=== PATIENT | male | born 1995 | race Caucasian/White ===

== ENCOUNTER 2017-11-09 05:46 | Emergency (ER) | payer SELFPAY ==
[2017-11-09 05:46] VITALS: BMI 20.3
[2017-11-09 06:05] VITALS: RESP 16; TEMP 98.2
[2017-11-09] MEDS ORDERED: Lidocaine 2% Inj (20ml) ONE (06:39)
[2017-11-09] MEDS ORDERED: Tdap Vaccine 0.5 ml Vial (10-64 yrs) IM ONE ×2 (06:55→07:13)
[2017-11-09] MEDS ORDERED: Lidocaine 2% Inj (20ml) SC ONE (07:13)
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
[2017-11-09 07:21] VITALS: BP 120/58; PULSE 70; O2SAT 96
--- NOTE | 2017-11-09 09:04 | RAD ---
PROCEDURE: Right Hand Radiographs. HISTORY: hand injury COMPARISON: None. FINDINGS: BONES: No acute fracture or destructive bony lesion identified. JOINTS: Normal. No osteoarthritic changes. SOFT TISSUES: Soft tissue edema overlies the metacarpophalangeal joints diffusely without retained radiodense foreign body or emphysema soft tissue changes related. Clinically correlate further. OTHER FINDINGS: None. IMPRESSION: No acute fracture or other destructive bony lesion appreciable. No dislocation. Soft edema overlies the dorsal mid hand soft tissues. Clinically correlate further.
--- NOTE | 2017-11-09 09:36 | ED PDOC ---
- ECG O2 Sat by Pulse Oximetry: 96 (RA) Pulse Ox Interpretation: Normal Medical Decision Making Medical Decision Making: Time: 07 Patient signed out to me pending XR studies, re-evaluation and final disposition. Time: 901 XR Right hand FINDINGS: BONES: No acute fracture or destructive bony lesion identified. JOINTS: Normal. No osteoarthritic changes. SOFT TISSUES: Soft tissue edema overlies the metacarpophalangeal joints diffusely without retained radiodense foreign body or emphysema soft tissue changes related. Clinically correlate further. OTHER FINDINGS: None. IMPRESSION: No acute fracture or other destructive bony lesion appreciable. No dislocation. Soft edema overlies the dorsal mid hand soft tissues. Clinically correlate further. Time: 930 Provider informed by patient's family that the patient is depressed. Crisis evaluation ordered. Time: 1044 Patient seen and evaluated by crisis team and per Dr. Simons, patient is stable for discharge home. Diagnosis: Unspecified schizophrenia Scribe Attestation: Documented by Marcela Castorena, acting as a scribe for Justino Pardo MD. Provider Scribe Attestation: All medical record entries made by the Scribe were at my direction and personally dictated by me. I have reviewed the chart and agree that the record accurately reflects my personal performance of the history, physical exam, medical decision making, and the department course for this patient. I have also personally directed, reviewed, and agree with the discharge instructions and disposition. Disposition Counseled Patient/Family Regarding: Studies Performed, Need For Followup - Clinical Impression Clinical Impression: Laceration, Schizophrenia - POA Present On Arrival: Falls Or Trauma - Disposition Referrals: Donna Sanchez MD [Staff Provider] - Disposition: Routine/Home Disposition Time: 11:00 Condition: GOOD Additional Instructions: Follow up with your PCP in 3 days. Take motrin for pain. Apply ice. Return for suture removal in 10-14 days. Prescriptions: Cephalexin [Keflex] 500 mg PO QID #28 capsule Instructions: Laceration Repair, Schizophrenia (DC), Stitches, Cephalexin
== END 2017-11-09 11:03 | disposition home or self-care (01) ==
LOC: H.ER 05:46
DX: S61.411A Laceration without foreign body of right hand, initial encounter (principal); W25.XXXA Contact with sharp glass, initial encounter; Y92.89 Other specified places as the place of occurrence of the external cause; F20.9 Schizophrenia, unspecified; F32.9 Major depressive disorder, single episode, unspecified; F41.9 Anxiety disorder, unspecified; F17.210 Nicotine dependence, cigarettes, uncomplicated

== ENCOUNTER 2018-01-03 18:45 | Emergency (ER) | payer SELFPAY ==
[2018-01-03 18:45] VITALS: BMI 20.3
[2018-01-03 19:09] VITALS: BP 102/60; PULSE 82; RESP 18; TEMP 98; O2SAT 98
== END 2018-01-03 19:38 | disposition left against medical advice (07) ==
LOC: H.ER 18:45
DX: Z02.89 Encounter for other administrative examinations (principal)

== ENCOUNTER → 2018-01-19 21:40 | Emergency (ER) | payer MEDICAID ==
[2018-01-19 21:40] VITALS: BMI 20.3
[2018-01-19 23:08] VITALS: BP 111/68; PULSE 75; RESP 18; TEMP 98; O2SAT 99
== END | disposition home or self-care (01) ==
LOC: H.ER 21:40
DX: Z02.89 Encounter for other administrative examinations (principal)

== ENCOUNTER 2018-02-01 19:55 | Emergency (ER) | payer MEDICAID ==
[2018-02-01 19:55] VITALS: BMI 20.3
[2018-02-01 20:16] VITALS: BP 105/67; PULSE 83; RESP 16; TEMP 97.9; O2SAT 98
--- NOTE | 2018-02-01 21:00 | ED PDOC ---
HPI: Psych/Substance Abuse Time Seen by Provider: 02/01/18 20:39 Chief Complaint (Nursing): Psychiatric Evaluation Chief Complaint (Provider): psychiatric evalution History Per: Patient, Other (male friend) History/Exam Limitations: no limitations Onset/Duration Of Symptoms: Days (months) Current Symptoms Are (Timing): Still Present Suicide/Self Injury Attempted (Context): None Associated Symptoms: Suicidal Thoughts (not in this moment but has had them in the past) Additional Complaint(s): 22 y/o male with a history of substance abuse presents to the ED for psychiatric evaluation. Patient reports that he recently go health insurance and he wanted to come into the ER. He states in the past months he has heard voices telling him to hurt himself. Patient claims 2 months ago he felt suicidal. He states he hasn't felt normal in the past couple years and had to call into work a lot this past week. Patient states he could only sleep one hour last night. He has no medical complaints. Denies having any recent suicidal or homicidal ideation. PMD: Dr. Carlos Goss Past Medical History Reviewed: Historical Data, Nursing Documentation, Vital Signs Vital Signs: Last Vital Signs Temp 97.9 F 02/01/18 20:13 Pulse 83 02/01/18 20:13 Resp 16 02/01/18 20:13 BP 105/67 02/01/18 20:13 Pulse Ox 98 02/01/18 20:13 - Medical History PMH: Anxiety, Depression Denies: Diabetes, Hepatitis, HIV, HTN, Seizures, Sexually Transmitted Disease - Surgical History Surgical History: No Surg Hx - Family History Family History: States: Unknown Family Hx - Immunization History Hx Tetanus Toxoid Vaccination: No Hx Influenza Vaccination: No Hx Pneumococcal Vaccination: No - Home Medications Home Medications: Ambulatory Orders Medication Instructions Recorded ALPRAZolam [Xanax] 1 mg PO DAILY 08/03/17 Zolpidem [Ambien] 5 mg PO HS PRN #10 tab 08/03/17 Cephalexin [Keflex] 500 mg PO QID #28 capsule 11/09/17 - Allergies Allergies/Adverse Reactions: Allergies Allergy/AdvReac Type Severity Reaction Status Date / Time No Known Allergies Allergy Verified 11/09/17 06:02 Review of Systems ROS Statement: Except As Marked, All Systems Reviewed And Found Negative Psych: Positive for: Suicidal ideation (has had in the past but not at this moment). Negative for: Other (denies homicidal ideation) Physical Exam - Reviewed Nursing Documentation Reviewed: Yes Vital Signs Reviewed: Yes - Physical Exam Appears: Positive for: Well, Non-toxic, No Acute Distress. Negative for: Uncomfortable Head Exam: Positive for: ATRAUMATIC, NORMAL INSPECTION Skin: Positive for: Normal Color Neck: Positive for: Normal, Painless ROM, Supple. Negative for: Decreased ROM Cardiovascular/Chest: Positive for: Regular Rate, Rhythm, Chest Non Tender. Negative for: Edema, Gallop, Murmur, Bradycardia, Tachycardia Respiratory: Positive for: Normal Breath Sounds. Negative for: Decreased Breath Sounds, Accessory Muscle Use, Crackles, Rales, Rhonchi, Stridor, Wheezing , Respiratory Distress Pulses-Carotid (L): 2+ Pulses-Carotid (R): 2+ Pulses-Radial (L): 2+ Pulses-Radial (R): 2+ - ECG O2 Sat by Pulse Oximetry: 98 (RA) Pulse Ox Interpretation: Normal Medical Decision Making Medical Decision Making: Time: 20:13 Impression: auditory hallucinations Pt is medically cleared for crisis evaluation Plan: * crisis evaluation Scribe Attestation: Documented by Christophe Velasquez acting as a scribe Sameer Farley PA-C. MD Scribkelsey Attestation: All medical record entries made by the Scribe were at my direction and personally dictated by me. I have reviewed the chart and agree that the record accurately reflects my personal performance of the history, physical exam, medical decision making, and the department course for this patient. I have also personally directed, reviewed, and agree with the discharge instructions and disposition. Disposition - Clinical Impression Clinical Impression: Schizophrenia - Patient ED Disposition Is Patient to be Admitted: No Discussed With : Sher Lane Doctor Will See Patient In The: Office Counseled Patient/Family Regarding: Diagnosis, Need For Followup - Disposition Disposition: Routine/Home Disposition Time: 21:27 Condition: STABLE Additional Instructions: Pt was evaluated by crisis and will be referred to Marilynn after discharge Pt acknowledged these instructions and referral Forms: [employer] (Slovenian)
== END 2018-02-01 21:40 | disposition home or self-care (01) ==
LOC: H.ER 19:55
DX: F20.9 Schizophrenia, unspecified (principal); F32.9 Major depressive disorder, single episode, unspecified; F41.9 Anxiety disorder, unspecified

== ENCOUNTER 2018-05-09 15:17 | Emergency (ER) | payer MEDICAID ==
[2018-05-09 15:17] VITALS: BMI 20.3
[2018-05-09 15:27] VITALS: RESP 18; O2SAT 100
--- NOTE | 2018-05-09 16:16 | ED PDOC ---
HPI: Abdomen Time Seen by Provider: 05/09/18 15:34 Chief Complaint (Nursing): Abdominal Pain Chief Complaint (Provider): Vomiting History Per: Patient Additional Complaint(s): 22 yo male, PMH of Schizophrenia, depression, anxiety and substance abuse, presents to ED for evaluation of abdominal pain, nausea, vomiting, shaking and diaphoresis that started at noon today. Pt has a history of heroin abuse, last used 3 days ago. Past Medical History Reviewed: Nursing Documentation, Vital Signs Vital Signs: Last Vital Signs Temp 98.0 F 05/09/18 18:35 Pulse 80 05/09/18 18:35 Resp 18 05/09/18 18:35 BP 110/69 05/09/18 18:35 Pulse Ox 100 05/09/18 20:15 - Medical History PMH: Anxiety, Depression, Schizophrenia Denies: Diabetes, Hepatitis, HIV, HTN, Seizures, Sexually Transmitted Disease - Family History Family History: States: Unknown Family Hx - Social History Current smoker - smoking cessation education provided: Yes Alcohol: Social Drugs: Cannabis, Other (heroin last used 3 days ago) - Immunization History Hx Tetanus Toxoid Vaccination: No Hx Influenza Vaccination: No Hx Pneumococcal Vaccination: No - Home Medications Home Medications: Ambulatory Orders Medication Instructions Recorded ALPRAZolam [Xanax] 1 mg PO DAILY 08/03/17 Zolpidem [Ambien] 5 mg PO HS PRN #10 tab 08/03/17 Cephalexin [Keflex] 500 mg PO QID #28 capsule 11/09/17 LORazepam [Ativan] 1 mg PO TID #3 tab 05/09/18 - Allergies Allergies/Adverse Reactions: Allergies Allergy/AdvReac Type Severity Reaction Status Date / Time No Known Allergies Allergy Verified 05/09/18 15:25 Review of Systems ROS Statement: Except As Marked, All Systems Reviewed And Found Negative Gastrointestinal: Positive for: Nausea, Vomiting, Abdominal Pain Psych: Positive for: Withdrawal Physical Exam - Reviewed Nursing Documentation Reviewed: Yes Vital Signs Reviewed: Yes - Physical Exam Appears: Positive for: Non-toxic, No Acute Distress, Uncomfortable Head Exam: Positive for: ATRAUMATIC, NORMAL INSPECTION, NORMOCEPHALIC Skin: Positive for: Normal Color, Warm, DRY Eye Exam: Positive for: EOMI, Normal appearance, PERRL ENT: Positive for: Normal ENT Inspection Neck: Positive for: Normal, Painless ROM Cardiovascular/Chest: Positive for: Regular Rate, Rhythm Respiratory: Positive for: CNT, Normal Breath Sounds Gastrointestinal/Abdominal: Positive for: Normal Exam, Soft Back: Positive for: Normal Inspection Extremity: Positive for: Normal ROM Neurologic/Psych: Positive for: Alert, Oriented - Laboratory Results Result Diagrams: 05/09/18 16:20 05/09/18 16:20 - ECG O2 Sat by Pulse Oximetry: 100 Medical Decision Making Medical Decision Making: Pt placed on nurse monitoring IV access established and diagnostics ordered Pt medicated with Ativan, Zofran and Pepcid. IVF started as well Pt on re-eval reports feeling greatly improved. 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 last 3 days ago. Pt declined crisis eval, reports he is working through detox his own way and is seeing a therapist Results of all labs discussed with pt who demonstrated full understanding pt asking to go home on re-eval, reports he is scheduled to start [facility] detox tomorrow Vitals stable Pt offes no physical complaints Disposition - Clinical Impression Clinical Impression: Acute drug withdrawal syndrome - Patient ED Disposition Is Patient to be Admitted: No - Disposition Disposition: Routine/Home Disposition Time: 18:00 Condition: STABLE Prescriptions: LORazepam [Ativan] 1 mg PO TID #3 tab Instructions: Drug Withdrawal (DC) Forms: [employer] (Frisian)
[2018-05-09] MEDS ORDERED: Sodium Chloride 0.9% 1,000 ML IV STA (16:17)
--- NOTE | 2018-05-09 16:32 | RAD ---
Date of service: 05/09/2018 PROCEDURE: CHEST RADIOGRAPH, 1 VIEW HISTORY: med screening COMPARISON: None available. FINDINGS: LUNGS: Clear. PLEURA: No pneumothorax or pleural fluid seen. CARDIOVASCULAR: Normal. OSSEOUS STRUCTURES: No significant abnormalities. VISUALIZED UPPER ABDOMEN: Normal. OTHER FINDINGS: None. IMPRESSION: No active disease.
[2018-05-09 16:33] LABS: BASO # 0.1 K/uL (0.0-0.2); BASO % 0.4 % (0.0-2.0); EOS # 0.1 K/uL (0.0-0.7); EOS % 0.3 % (0.0-4.0); HEMOGLOBIN 14.4 g/dL (12.0-18.0); LYMPH % 12.1 % (20.0-40.0); MEAN CELL VOLUME 85.1 fl (80.0-94.0); MEAN CORPUSCULAR HEMOGLOBIN 28.6 pg (27.0-31.0); MEAN CORPUSCULAR HGB CONC 33.6 g/dL (33.0-37.0); MEAN PLATELET VOLUME 9.4 fl (7.2-11.7); MONO # 0.8 K/uL (0.0-0.8); NEUT # 13.8 K/uL (1.8-7.0); NEUT % 82.2 % (50.0-75.0); NRBC % 0.1 % (0.0-0.0); RBC 5.05 Mil/uL (4.40-5.90); RED CELL DISTRIBUTION WIDTH 13.8 % (11.5-14.5); WHITE BLOOD COUNT 16.8 K/uL (4.8-10.8)
[2018-05-09 16:36] LABS: URINE BILIRUBIN NEGATIVE (NEGATIVE); URINE BLOOD NEGATIVE (NEGATIVE); URINE CLARITY SLIGHTY-CLOUDY (Clear); URINE COLOR YELLOW (YELLOW); URINE GLUCOSE (UA) NEG (Normal); URINE LEUKOCYTE ESTERASE NEG Leu/uL (Negative); URINE PROTEIN 30 mg/dL (NEGATIVE); URINE UROBILINOGEN 0.2-1.0 mg/dL (0.2-1.0)
[2018-05-09 16:43] LABS: ALB/GLOB RATIO 1.5 (1.0-2.1); ALBUMIN 4.5 g/dL (3.5-5.0); ALT/SGPT 78 U/L (21-72); AST/SGOT 79 U/L (17-59); BLOOD UREA NITROGEN 10 mg/dl (9-20); CALCIUM 9.9 mg/dL (8.4-10.2); GFR NON-AFRICAN AMERICAN > 60
[2018-05-09 16:54] LABS: BARBITURATES, UR POSITIVE (NEGATIVE); BENZODIAZEPINES, UR POSITIVE (NEGATIVE); OPIATES, UR POSITIVE (NEGATIVE); PHENCYCLIDINE, UR NEGATIVE (NEGATIVE)
[2018-05-09] MEDS ORDERED: Alum-Mag Hydrox-Simethicone Susp (30 mL) PO ONE (17:51)
[2018-05-09] MEDS ORDERED: Alum-Mag Hydrox-Simethicone Susp (30 mL) ONE (18:03)
[2018-05-09 18:35] VITALS: BP 110/69; PULSE 80; TEMP 98
== END 2018-05-09 18:39 | disposition home or self-care (01) ==
LOC: H.ER 15:17
DX: F11.23 Opioid dependence with withdrawal (principal); F20.9 Schizophrenia, unspecified; F17.200 Nicotine dependence, unspecified, uncomplicated; F32.9 Major depressive disorder, single episode, unspecified; F41.9 Anxiety disorder, unspecified
CPT/HCPCS: 71045; 80053; 80320; 80324; 80345; 80346; 80349; 80353; 80358; 80361; 81003; 82948; 83992; 85025; 96374; 96375; 99284; J2060; J2405; J7030

== ENCOUNTER 2018-05-11 17:51 | Emergency (ER) | payer MEDICAID ==
[2018-05-11 17:51] VITALS: BMI 20.3
[2018-05-11 18:03] VITALS: O2SAT 97
--- NOTE | 2018-05-11 18:35 | ED PDOC ---
HPI: Abdomen Time Seen by Provider: 05/11/18 18:01 Chief Complaint (Nursing): Abdominal Pain Chief Complaint (Provider): nausea and vomiting History Per: Patient Additional Complaint(s): 22 yo male, hx of substance abuse, presents to ED To ED for evaluation of continued vomiting, chills, weakness. Patient states he takes xanax and uses "dope" regularly, and has not taken either in 3 days now. [employer] saw Pt 3 days ago while acutely withdrawing from heroin/Tramadol. Pt was using 200 mg Tramadol daily for over a year and had stopped from 3 days as of Thursday. Pt has yet to reuse Toradol. Past Medical History Reviewed: Nursing Documentation, Vital Signs Vital Signs: Last Vital Signs Temp 99.8 F H 05/11/18 20:07 Pulse 61 05/11/18 20:07 Resp 18 05/11/18 20:07 BP 108/52 L 05/11/18 20:07 Pulse Ox 97 05/11/18 20:07 - Medical History PMH: Anxiety, Depression, Schizophrenia Denies: Diabetes, Hepatitis, HIV, HTN, Seizures, Sexually Transmitted Disease - Surgical History Surgical History: No Surg Hx - Family History Family History: States: Unknown Family Hx - Living Arrangements Living Arrangements: With Family - Social History Current smoker - smoking cessation education provided: Yes Alcohol: Social Drugs: Cannabis, Cocaine, Opiates, Methamphetamine - Immunization History Hx Tetanus Toxoid Vaccination: No Hx Influenza Vaccination: No Hx Pneumococcal Vaccination: No - Home Medications Home Medications: Ambulatory Orders Medication Instructions Recorded ALPRAZolam [Xanax] 1 mg PO DAILY 08/03/17 Zolpidem [Ambien] 5 mg PO HS PRN #10 tab 08/03/17 Cephalexin [Keflex] 500 mg PO QID #28 capsule 11/09/17 LORazepam [Ativan] 1 mg PO TID #3 tab 05/09/18 Ondansetron ODT [Zofran ODT] 4 mg PO Q6 PRN #10 odt 05/11/18 - Allergies Allergies/Adverse Reactions: Allergies Allergy/AdvReac Type Severity Reaction Status Date / Time No Known Allergies Allergy Verified 05/09/18 15:25 Review of Systems ROS Statement: Except As Marked, All Systems Reviewed And Found Negative Gastrointestinal: Positive for: Nausea, Vomiting, Abdominal Pain Physical Exam - Reviewed Nursing Documentation Reviewed: Yes Vital Signs Reviewed: Yes - Physical Exam Appears: Positive for: Well, Non-toxic, No Acute Distress Head Exam: Positive for: ATRAUMATIC, NORMAL INSPECTION, NORMOCEPHALIC Skin: Positive for: Normal Color, Warm, DRY Eye Exam: Positive for: EOMI, Normal appearance, PERRL ENT: Positive for: Normal ENT Inspection Neck: Positive for: Normal, Painless ROM Cardiovascular/Chest: Positive for: Regular Rate, Rhythm Respiratory: Positive for: CNT, Normal Breath Sounds Gastrointestinal/Abdominal: Positive for: Normal Exam, Soft Back: Positive for: Normal Inspection Extremity: Positive for: Normal ROM Neurologic/Psych: Positive for: Alert, Oriented - Laboratory Results Result Diagrams: 05/11/18 19:10 05/11/18 19:10 - ECG O2 Sat by Pulse Oximetry: 97 Medical Decision Making Medical Decision Making: IV access established and treatment initiated with IVF, Zofran and Pepcid On re-eval, Pt appears greatly improved. Pt tolerating PO and asking to go home. Pt advised to wait until labs resulted. Physical exam repeat remains unchanged from primary Labs resulted with Pt and family at bedside and demonstrated full understanding repeat temp 98.5 F P: 89 stable for discharge home at this time. Pt again offered crisis eval and detox, declined and reports that he is going to start [facility] detox next week, he could not go yesterday as initially planned bc he was not feeling well. Disposition - Clinical Impression Clinical Impression: Nausea & vomiting - Patient ED Disposition Is Patient to be Admitted: No - Disposition Disposition: Routine/Home Disposition Time: 19:00 Condition: STABLE Prescriptions: Ondansetron ODT [Zofran ODT] 4 mg PO Q6 PRN #10 odt PRN Reason: Nausea/Vomiting Instructions: Nausea and Vomiting, Adult Forms: [employer] ([place]ovan)
[2018-05-11] MEDS ORDERED: Sodium Chloride 0.9% 1,000 ML IV STA (18:39)
[2018-05-11 19:16] LABS: BASO % 0.2 % (0.0-2.0); HEMOGLOBIN 15.4 g/dL (12.0-18.0); LYMPH # 2.3 K/uL (1.0-4.3); LYMPH % 19.1 % (20.0-40.0); MEAN CELL VOLUME 84.8 fl (80.0-94.0); MEAN CORPUSCULAR HEMOGLOBIN 29.2 pg (27.0-31.0); MEAN CORPUSCULAR HGB CONC 34.5 g/dL (33.0-37.0); MEAN PLATELET VOLUME 8.9 fl (7.2-11.7); MONO % 8.5 % (0.0-10.0); NEUT # 8.7 K/uL (1.8-7.0); NEUT % 72.2 % (50.0-75.0); NRBC % 0.1 % (0.0-0.0); RBC 5.27 Mil/uL (4.40-5.90); RED CELL DISTRIBUTION WIDTH 13.9 % (11.5-14.5)
[2018-05-11 19:27] LABS: URINE BACTERIA RARE (<OCC); URINE BILIRUBIN NEGATIVE (NEGATIVE); URINE BLOOD NEGATIVE (NEGATIVE); URINE CLARITY CLOUDY (Clear); URINE COLOR AMBER (YELLOW); URINE GLUCOSE (UA) NEG (Normal); URINE LEUKOCYTE ESTERASE NEG Leu/uL (Negative); URINE PROTEIN 30 mg/dL (NEGATIVE); URINE UROBILINOGEN 0.2-1.0 mg/dL (0.2-1.0)
[2018-05-11 19:32] LABS: ALB/GLOB RATIO 1.4 (1.0-2.1); ALBUMIN 5.2 g/dL (3.5-5.0); ALT/SGPT 111 U/L (21-72); AMYLASE 103 U/L (30-110); AST/SGOT 80 U/L (17-59); BARBITURATES, UR POSITIVE (NEGATIVE); BENZODIAZEPINES, UR POSITIVE (NEGATIVE); BLOOD UREA NITROGEN 15 mg/dl (9-20); CALCIUM 10.4 mg/dL (8.4-10.2); GFR NON-AFRICAN AMERICAN > 60; LIPASE 88 U/L (23-300); OPIATES, UR POSITIVE (NEGATIVE); PHENCYCLIDINE, UR NEGATIVE (NEGATIVE)
[2018-05-11 20:08] VITALS: BP 108/52; PULSE 61; RESP 18; TEMP 99.8
--- NOTE | 2018-05-12 07:44 | CARD ---
APPROVED REPORT Date of service: 05/11/2018 EKG Measurement Heart [id number] <Conclusion> Sinus bradycardia with short RI Nonspecific T wave abnormality Abnormal ECG
== END 2018-05-11 20:20 | disposition home or self-care (01) ==
LOC: H.ER 17:51
DX: R11.2 Nausea with vomiting, unspecified (principal)
CPT/HCPCS: 80053; 80324; 80345; 80346; 80349; 80353; 80358; 80361; 81003; 82150; 82948; 83690; 83992; 84484; 85025; 93005; 96361; 96374; 96375; 99284; J2405; J7030

== ENCOUNTER 2018-07-19 10:04 | Emergency (ER) | payer MEDICAID ==
[2018-07-19 10:04] VITALS: BMI 20.3
[2018-07-19 10:10] VITALS: RESP 18
[2018-07-19 10:25] VITALS: O2SAT 99
[2018-07-19] MEDS ORDERED: Sodium Chloride 0.9% 1,000 ML IV STA (10:49)
--- NOTE | 2018-07-19 10:53 | ED PDOC ---
HPI: General Adult Time Seen by Provider: 07/19/18 10:19 Chief Complaint (Nursing): GI Problem History Per: Patient Onset/Duration Of Symptoms: Days (4) Current Symptoms Are (Timing): Still Present Severity: Moderate Additional Complaint(s): H/o polysubstance abuse including heroin, percocet and ETOH. Last used 4 days ago. Has been on Suboxone x 4 days but c/o abd pain and vomiting and diapho resis. Has appt for inpt rehab at [facility] this week. Past Medical History Vital Signs: Last Vital Signs Temp 98.5 F 07/19/18 10:15 Pulse 98 H 07/19/18 10:15 Resp 18 07/19/18 10:15 BP 137/82 07/19/18 10:15 Pulse Ox 99 07/19/18 10:15 - Medical History PMH: Anxiety, Depression, Schizophrenia Denies: Diabetes, Hepatitis, HIV, HTN, Chronic Kidney Disease, Seizures, Se xually Transmitted Disease - Family History Family History: States: Unknown Family Hx - Immunization History Hx Tetanus Toxoid Vaccination: No Hx Influenza Vaccination: No Hx Pneumococcal Vaccination: No - Home Medications Home Medications: Ambulatory Orders Medication Instructions Recorded ALPRAZolam [Xanax] 1 mg PO DAILY 08/03/17 Zolpidem [Ambien] 5 mg PO HS PRN #10 tab 08/03/17 Cephalexin [Keflex] 500 mg PO QID #28 capsule 11/09/17 LORazepam [Ativan] 1 mg PO TID #3 tab 05/09/18 Ondansetron ODT [Zofran ODT] 4 mg PO Q6 PRN #10 odt 05/11/18 Famotidine [Pepcid] 20 mg PO Q12 #20 tab 07/19/18 Ondansetron [Zofran] 4 mg PO Q8H #10 tab 07/19/18 - Allergies Allergies/Adverse Reactions: Allergies Allergy/AdvReac Type Severity Reaction Status Date / Time No Known Allergies Allergy Verified 05/09/18 15:25 Review of Systems ROS Statement: Except As Marked, All Systems Reviewed And Found Negative Constitutional: Positive for: Sweats Gastrointestinal: Positive for: Nausea, Vomiting, Abdominal Pain Physical Exam - Reviewed Nursing Documentation Reviewed: Yes Vital Signs Reviewed: Yes - Physical Exam Appears: Positive for: Non-toxic, No Acute Distress Head Exam: Positive for: ATRAUMATIC, NORMAL INSPECTION, NORMOCEPHALIC Skin: Positive for: Normal Color, Warm, DRY Eye Exam: Positive for: EOMI, Normal appearance, PERRL ENT: Positive for: Normal ENT Inspection Neck: Positive for: Normal, Painless ROM Cardiovascular/Chest: Positive for: Regular Rate, Rhythm Respiratory: Positive for: CNT, Normal Breath Sounds Gastrointestinal/Abdominal: Positive for: Normal Exam, Soft Back: Positive for: Normal Inspection Extremity: Positive for: Normal ROM Neurologic/Psych: Positive for: Alert, Oriented - Laboratory Results Result Diagrams: 07/19/18 11:17 07/19/18 11:17 - ECG O2 Sat by Pulse Oximetry: 99 Disposition - Clinical Impression Clinical Impression: Substance abuse withdrawal - Patient ED Disposition Is Patient to be Admitted: No Counseled Patient/Family Regarding: Studies Performed, Diagnosis, Need For Followup, Rx Given - Disposition Referrals: [facility] [Outside] Disposition: Routine/Home Disposition Time: 14:39 Condition: FAIR Prescriptions: Famotidine [Pepcid] 20 mg PO Q12 #20 tab Ondansetron [Zofran] 4 mg PO Q8H #10 tab Instructions: Drug Withdrawal (DC) Forms: [employer] (Slovenian)
[2018-07-19 11:28] LABS: BASO % 0.3 % (0.0-2.0); EOS % 0.1 % (0.0-4.0); HEMOGLOBIN 15.4 g/dL (12.0-18.0); LYMPH # 2.3 K/uL (1.0-4.3); LYMPH % 21.7 % (20.0-40.0); MEAN CELL VOLUME 85.5 fl (80.0-94.0); MEAN CORPUSCULAR HEMOGLOBIN 28.6 pg (27.0-31.0); MEAN CORPUSCULAR HGB CONC 33.5 g/dL (33.0-37.0); MEAN PLATELET VOLUME 8.9 fl (7.2-11.7); MONO # 1.2 K/uL (0.0-0.8); MONO % 10.9 % (0.0-10.0); NEUT # 7.2 K/uL (1.8-7.0); NRBC % 0.2 % (0.0-0.0); RBC 5.37 Mil/uL (4.40-5.90); RED CELL DISTRIBUTION WIDTH 13.8 % (11.5-14.5); WHITE BLOOD COUNT 10.7 K/uL (4.8-10.8)
[2018-07-19 11:31] LABS: ALB/GLOB RATIO 1.5 (1.0-2.1); ALBUMIN 5.5 g/dL (3.5-5.0); ALT/SGPT 23 U/L (21-72); AST/SGOT 25 U/L (17-59); BLOOD UREA NITROGEN 21 mg/dl (9-20); CALCIUM 9.9 mg/dL (8.4-10.2); GFR NON-AFRICAN AMERICAN > 60
[2018-07-19 14:40] VITALS: BP 125/73; PULSE 71; TEMP 98.8
[2018-07-19 15:11] LABS: BARBITURATES, UR NEGATIVE (NEGATIVE); BENZODIAZEPINES, UR POSITIVE (NEGATIVE); OPIATES, UR POSITIVE (NEGATIVE); PHENCYCLIDINE, UR NEGATIVE (NEGATIVE)
--- NOTE | 2018-07-19 18:47 | CARD ---
APPROVED REPORT Date of service: 07/19/2018 EKG Measurement Heart [id number] <Conclusion> Sinus bradycardia with sinus arrhythmia Otherwise normal ECG
== END 2018-07-19 14:55 | disposition home or self-care (01) ==
LOC: H.ER 10:04
DX: F19.939 Other psychoactive substance use, unspecified with withdrawal, unspecified (principal); Z86.59 Personal history of other mental and behavioral disorders; Z79.899 Other long term (current) drug therapy
CPT/HCPCS: 80053; 80320; 80324; 80345; 80346; 80349; 80353; 80358; 80361; 83992; 85025; 93005; 96374; 96375; 99284; J2405; J7030

== ENCOUNTER 2019-01-03 17:57 | Emergency (ER) | payer MEDICAID ==
[2019-01-03 17:57] VITALS: BMI 20.3
[2019-01-03 18:25] VITALS: BP 102/56; PULSE 74; RESP 16; TEMP 99.5; O2SAT 99
--- NOTE | 2019-01-03 19:41 | ED PDOC ---
HPI: General Adult Time Seen by Provider: 01/03/19 18:31 Chief Complaint (Nursing): Fever Chief Complaint (Provider): fever History Per: Patient History/Exam Limitations: no limitations Additional Complaint(s): 23 y/o Male IV heroine abuser with hx of anxiety, depression and schizophrenia who presents with intermittent fevers for the past 7 days. Pt states that he has been having subjective fevers daily for the past week that come and go associated with drenching sweats. He has been taking Ibuprofen, last dose at 1pm today. He denies any associated symptoms of cough, SOB, chest pain, sore throat, BUCKNER, ear pain. He admits to last using shooting heroine about 1 hour ago and uses about 10 bags of heroine per day. He reuses his needles but does not share needles. Past Medical History Reviewed: Historical Data, Nursing Documentation, Vital Signs Vital Signs: Last Vital Signs Temp 99.5 F 01/03/19 18:21 Pulse 74 01/03/19 18:21 Resp 16 01/03/19 18:21 BP 102/56 L 01/03/19 18:21 Pulse Ox 99 01/03/19 18:21 Primary Care Provider: EMERITA GOFF - Medical History PMH: Anxiety, Depression, Schizophrenia Denies: Diabetes, Hepatitis, HIV, HTN, Chronic Kidney Disease, Seizures, Sexually Transmitted Disease - Family History Family History: States: Unknown Family Hx - Social History Current smoker - smoking cessation education provided: Yes (1ppd x 6 yrs) Alcohol: None Drugs: Opiates (IV heroine) - Immunization History Hx Tetanus Toxoid Vaccination: No Hx Influenza Vaccination: No Hx Pneumococcal Vaccination: No - Home Medications Home Medications: Ambulatory Orders Medication Instructions Recorded No Known Home Med 09/22/18 - Allergies Allergies/Adverse Reactions: Allergies Allergy/AdvReac Type Severity Reaction Status Date / Time No Known Allergies Allergy Verified 01/03/19 18:21 Review of Systems Constitutional: Positive for: Fever, Chills, Sweats. Negative for: Malaise ENT: Positive for: Nose Congestion. Negative for: Ear Pain, Throat Pain Cardiovascular: Negative for: Chest Pain, Palpitations Respiratory: Negative for: Cough, Shortness of Breath Gastrointestinal: Negative for: Nausea, Vomiting, Diarrhea Genitourinary Male: Negative for: Dysuria Physical Exam - Reviewed Nursing Documentation Reviewed: Yes Vital Signs Reviewed: Yes - Physical Exam Appears: Positive for: No Acute Distress Head Exam: Positive for: ATRAUMATIC ENT: Positive for: TM Is/Are (mild effusion on left w/o erythema or swelling, normal on Right. ), Pharyngeal Erythema (mild). Negative for: Sinus Pain/Drainage, Tonsillar Exudate, Tonsillar Swelling Cardiovascular/Chest: Positive for: Regular Rate, Rhythm Respiratory: Positive for: Normal Breath Sounds Gastrointestinal/Abdominal: Positive for: Normal Exam Extremity: Positive for: Other (Right arm with evidence of track shrestha w/o associated erythema. Area of macular erythema at antecubital fossa (pt states was more red prior to shooting up in that arm an hour ago). ) Neurological/Psych: Positive for: Awake, Alert, Oriented - ECG O2 Sat by Pulse Oximetry: 99 Medical Decision Making Medical Decision Making: CBC, CMP, lipase CXR PA and lateral Rapid HIV blood cultures U/A, urine culture Urine drug screen Rapid flu Rapid Strep CXR read by me: no acute pathology. 20:00: pt endorsed to MARGARITA Jama pending lab results and disposition. Disposition - Clinical Impression Clinical Impression: Fever of unknown origin - Patient ED Disposition Is Patient to be Admitted: Transfer of Care (MARGARITA Jama) - Disposition Disposition: Transfer of Care Disposition Time: 20:00 Condition: FAIR
[2019-01-03 20:43] LABS: BASO % 0.4 % (0.0-2.0); EOS % 0.2 % (0.0-4.0); HEMOGLOBIN 12.3 g/dL (12.0-18.0); LYMPH # 1.4 K/uL (1.0-4.3); LYMPH % 15.5 % (20.0-40.0); MEAN CELL VOLUME 81.4 fl (80.0-94.0); MEAN CORPUSCULAR HEMOGLOBIN 27.7 pg (27.0-31.0); MEAN PLATELET VOLUME 8.3 fl (7.2-11.7); MONO # 0.8 K/uL (0.0-0.8); MONO % 8.6 % (0.0-10.0); NEUT % 75.3 % (50.0-75.0); NRBC % 0.1 % (0.0-0.0); RBC 4.46 Mil/uL (4.40-5.90); RED CELL DISTRIBUTION WIDTH 14.3 % (11.5-14.5); WHITE BLOOD COUNT 9.3 K/uL (4.8-10.8)
[2019-01-03 20:53] LABS: ALB/GLOB RATIO 1.4 (1.0-2.1); ALBUMIN 4.4 g/dL (3.5-5.0); ALT/SGPT 26 U/L (21-72); AST/SGOT 21 U/L (17-59); BLOOD UREA NITROGEN 11 mg/dl (9-20); GFR NON-AFRICAN AMERICAN > 60; LIPASE 44 U/L (23-300)
--- NOTE | 2019-01-03 21:27 | ED PDOC ---
- Laboratory Results Result Diagrams: 01/03/19 20:05 01/03/19 20:05 Lab Results: Total Bilirubin 0.7 mg/dl (0.2-1.3) 01/03/19 20:05 AST 21 U/L (17-59) 01/03/19 20:05 ALT 26 U/L (21-72) 01/03/19 20:05 Alkaline Phosphatase 76 U/L (38-126) 01/03/19 20:05 Total Protein 7.5 G/DL (6.3-8.2) 01/03/19 20:05 Albumin 4.4 g/dL (3.5-5.0) 01/03/19 20:05 Globulin 3.2 gm/dL (2.2-3.9) 01/03/19 20:05 Albumin/Globulin Ratio 1.4 (1.0-2.1) 01/03/19 20:05 Lipase 44 U/L (23-300) 01/03/19 20:05 - ECG O2 Sat by Pulse Oximetry: 99 - Progress ED Course And Treament: case endorsed to quality analyst/technical writer from Maria Swann PA-C pending labs, re-eval 21:20 Labs resulted Upon going to re-evaluate patient, patient no longer in exam room Patient left ED before treatment completed Disposition - Clinical Impression Clinical Impression: Fever of unknown origin, Substance abuse - POA Present On Arrival: None - Disposition Disposition: Left W/O Treatment Disposition Time: 21:20 Condition: STABLE Forms: [facility] (Ugandan)
[2019-01-03 21:48] LABS: URINE BILIRUBIN NEGATIVE (NEGATIVE); URINE BLOOD NEGATIVE (NEGATIVE); URINE CLARITY CLOUDY (Clear); URINE COLOR YELLOW (YELLOW); URINE GLUCOSE (UA) NEG (NEGATIVE); URINE LEUKOCYTE ESTERASE NEG Leu/uL (Negative); URINE PROTEIN 100 mg/dL (NEGATIVE)
[2019-01-03 21:58] LABS: BARBITURATES, UR NEGATIVE (NEGATIVE); BENZODIAZEPINES, UR NEGATIVE (NEGATIVE); OPIATES, UR POSITIVE (NEGATIVE); PHENCYCLIDINE, UR NEGATIVE (NEGATIVE)
--- NOTE | 2019-01-04 09:12 | RAD ---
Date of service: 01/03/2019 HISTORY: shortness of breath, cough COMPARISON: Frontal chest radiograph 05/09/2018. TECHNIQUE: Chest PA and lateral views FINDINGS: LUNGS: No active pulmonary disease. PLEURA: No significant pleural effusion identified. No pneumothorax apparent. CARDIOVASCULAR: No aortic atherosclerotic calcification present. Normal cardiac size. No pulmonary vascular congestion. OSSEOUS STRUCTURES: No significant abnormalities. VISUALIZED UPPER ABDOMEN: Normal. OTHER FINDINGS: None. IMPRESSION: No interval acute cardiopulmonary disease appreciated.
== END 2019-01-03 21:30 | disposition left against medical advice (07) ==
LOC: H.ER 17:57
DX: R50.9 Fever, unspecified (principal); F19.10 Other psychoactive substance abuse, uncomplicated
CPT/HCPCS: 71046; 80053; 81003; 83690; 85025; 87040; 87070; 87086; 87149; 87205; 87390; 87430; 87804; 99283; G0480